=== PATIENT | female | born 1935 | race Caucasian/White ===

== ENCOUNTER 2017-07-12 05:07 | Inpatient (IN) | payer OTHER ==
[2017-07-12 06:18] LABS: ADD MAN DIFF? NO
[2017-07-12 06:30] LABS: WHITE BLOOD COUNT 15.1 10^3/ul (4.8-10.8)
[2017-07-12 06:30] LABS: BASOPHILS % 0.3 % (0.0-2.0); EOSINOPHILS # 0.2 10^3/ul (0.0-0.5); EOSINOPHILS % 1.5 % (0.0-7.0); HEMATOCRIT 39.9 % (37.0-47.0); HEMOGLOBIN 12.9 g/dl (12.0-16.0); LYMPHOCYTES # 1.9 10^3/ul (0.8-2.9); LYMPHOCYTES % 12.3 % (15.0-51.0); MEAN CORPUSCULAR HEMOGLOBIN 28.2 pg (29.0-33.0); MEAN CORPUSCULAR HGB CONC 32.3 g/dl (32.0-37.0); MEAN CORPUSCULAR VOLUME 87.1 fl (82.0-101.0); MEAN PLATELET VOLUME 10.8 fl (7.4-10.4); MONOCYTE # 0.9 10^3/ul (0.3-0.9); MONOCYTES % 5.9 % (0.0-11.0); NEUTROPHILS % 79.6 % (39.0-77.0); PLATELET COUNT 255 10^3/UL (140-415); RED BLOOD COUNT 4.58 10^6/ul (4.20-5.40); RED CELL DISTRIBUTION WIDTH 14.9 % (11.5-14.5)
[2017-07-12] MEDS: NITROGLYCERIN (SL) 0.4 MG TAB SL (06:45)
[2017-07-12] MEDS: ASPIRIN 81 MG TAB PO (06:45)
[2017-07-12] MEDS: NITROGLYCERIN 2% 1 GM OINT PKT TD (06:45)
[2017-07-12 06:50] LABS: INR 1.05; PARTIAL THROMBOPLASTIN TIME 34.8 Sec (25.0-35.0); PROTIME 13.8 Sec (11.9-14.9); PT RATIO 1.1
[2017-07-12 06:51] LABS: ALANINE AMINOTRANSFERASE 26 IU/L (13-69); ALBUMIN 4.1 g/dl (3.3-4.9); ALBUMIN/GLOBULIN RATIO 0.95; ALKALINE PHOSPHATASE 117 IU/L (42-121); ANION GAP 14 (8-16); ASPARTATE AMINO TRANSFERASE 28 IU/L (15-46); BILIRUBIN,INDIRECT 0.4 mg/dl (0-1.1); BILIRUBIN,TOTAL 0.4 mg/dl (0.2-1.3); BLOOD UREA NITROGEN 25 mg/dl (7-20); CALCIUM 9.5 mg/dl (8.4-10.2); CARBON DIOXIDE 27 mmol/L (21-31); CHLORIDE 105 mmol/L (97-110); CREATININE 0.68 mg/dl (0.44-1.00); GLUCOSE 108 mg/dl (70-220); SODIUM 142 mmol/L (135-144); TOTAL PROTEIN 8.4 g/dl (6.1-8.1)
[2017-07-12 07:02] LABS: B-TYPE NATRIURETIC PEPTIDE 2760 PG/ML (0-450); TROPONIN-I < 0.012 ng/ml (0.00-0.12)
[2017-07-12] MEDS ORDERED: ACETAMINOPHEN 325 MG TAB PO (10:00)
[2017-07-12] MEDS ORDERED: ONDANSETRON 4 MG INJ IV ×2 (10:00→11:00)
[2017-07-12] MEDS: FUROSEMIDE 40 MG INJ IV ×2 (11:13→17:08)
[2017-07-12] MEDS: METOPROLOL 50 MG TAB PO ×2 (11:13→20:39)
[2017-07-12] MEDS: LOSARTAN 25 MG TAB PO (11:13)
[2017-07-12] MEDS: CEFTRIAXONE 1 GM/50 ML (PMX) 50 ML IVPB (14:43)
[2017-07-12] MEDS: LACTOBACILLUS RHAMNOSUS CAP PO ×2 (14:43→20:38)
[2017-07-12] MEDS: morphine 2 MG INJ IV ×2 (14:44→20:36)
[2017-07-12] MEDS: AZITHROMYCIN 500MG/NS (PMX) 250 ML IVPB (15:52)
[2017-07-12 16:10] LABS: ADD UMIC YES; UR ASCORBIC ACID NEGATIVE (NEGATIVE); UR BACTERIA FEW /HPF (NONE SEEN); UR BILIRUBIN (Dip) NEGATIVE (NEGATIVE); UR BLOOD (Dip) 1+ mg/dL (NEGATIVE); UR CLARITY CLOUDY (CLEAR); UR COLOR YELLOW (YELLOW); UR GLUCOSE (Dip) NEGATIVE (NEGATIVE); UR KETONES (Dip) NEGATIVE (NEGATIVE); UR LEUKOCYTE ESTERASE (Dip) 3+ Leu/ul (NEGATIVE); UR NITRITE (Dip) NEGATIVE (NEGATIVE); UR RBC 14 /HPF (0-5); UR SPECIFIC GRAVITY (Dip) 1.006 (1.003-1.030); UR SQUAMOUS EPITHELIAL CELL MODERATE /HPF (FEW); UR TOTAL PROTEIN (Dip) NEGATIVE (NEGATIVE); UR UROBILINOGEN (Dip) NEGATIVE (NEGATIVE); UR WBC 67 /HPF (0-5)
[2017-07-12 16:26] LABS: CREATINE KINASE 31 IU/L (23-200)
[2017-07-12 16:39] LABS: CK INDEX 3.5
[2017-07-12 16:40] LABS: TROPONIN-I < 0.012 ng/ml (0.00-0.12)
[2017-07-12 18:04] LABS: D-DIMER 4419.21 ng/ml (<460)
[2017-07-12] MEDS: FAMOTIDINE 20 MG TAB PO (20:38)
[2017-07-12] MEDS: DOCUSATE SODIUM 100 MG CAP PO (20:38)
[2017-07-12] MEDS: APIXABAN 5 MG TABLET PO (20:38)
[2017-07-12] MEDS: LATANOPROST 0.005% 2.5 ML OPH BOTH EYES (21:00)
[2017-07-12] MEDS ORDERED: APIXABAN 5 MG TABLET PO (21:00)
[2017-07-12] MEDS ORDERED: TRAVOPROST 0.004% 2.5 ML OPH BOTH EYES (21:00)
[2017-07-13] MEDS: morphine 2 MG INJ IV (03:10)
[2017-07-13] MEDS: FUROSEMIDE 40 MG INJ IV ×2 (05:14→17:51)
[2017-07-13] MEDS: LACTOBACILLUS RHAMNOSUS CAP PO ×2 (08:45→20:22)
[2017-07-13] MEDS: APIXABAN 5 MG TABLET PO ×2 (08:46→20:03)
[2017-07-13] MEDS: LOSARTAN 25 MG TAB PO (08:47)
[2017-07-13] MEDS: METOPROLOL 50 MG TAB PO ×2 (08:47→20:18)
[2017-07-13] MEDS: CHOLECALCIFEROL 2,000 UNIT CAP PO (08:48)
[2017-07-13] MEDS: DOCUSATE SODIUM 100 MG CAP PO ×2 (08:48→20:03)
[2017-07-13] MEDS ORDERED: ASPIRIN 81 MG TAB PO (09:00)
[2017-07-13 09:04] LABS: ADD MAN DIFF? NO
[2017-07-13 09:12] LABS: WHITE BLOOD COUNT 13.7 10^3/ul (4.8-10.8)
[2017-07-13 09:12] LABS: BASOPHILS % 0.2 % (0.0-2.0); EOSINOPHILS # 0.1 10^3/ul (0.0-0.5); EOSINOPHILS % 0.4 % (0.0-7.0); HEMATOCRIT 39.3 % (37.0-47.0); HEMOGLOBIN 12.9 g/dl (12.0-16.0); LYMPHOCYTES # 1.3 10^3/ul (0.8-2.9); LYMPHOCYTES % 9.4 % (15.0-51.0); MEAN CORPUSCULAR HEMOGLOBIN 27.9 pg (29.0-33.0); MEAN CORPUSCULAR HGB CONC 32.8 g/dl (32.0-37.0); MEAN CORPUSCULAR VOLUME 85.1 fl (82.0-101.0); MEAN PLATELET VOLUME 10.7 fl (7.4-10.4); MONOCYTES % 7.6 % (0.0-11.0); NEUTROPHIL # 11.2 10^3/ul (1.6-7.5); PLATELET COUNT 273 10^3/UL (140-415); RED BLOOD COUNT 4.62 10^6/ul (4.20-5.40); RED CELL DISTRIBUTION WIDTH 14.6 % (11.5-14.5)
[2017-07-13 09:27] LABS: HEMOGLOBIN A1C 5.5 % (0-5.9)
[2017-07-13 09:34] LABS: INR 1.31; PROTIME 16.5 Sec (11.9-14.9); PT RATIO 1.3
[2017-07-13 09:35] LABS: ANION GAP 13 (8-16); BLOOD UREA NITROGEN 18 mg/dl (7-20); CALCIUM 9.6 mg/dl (8.4-10.2); CARBON DIOXIDE 32 mmol/L (21-31); CHLORIDE 97 mmol/L (97-110); CHOL/HDL RATIO 3.3 RATIO; CHOLESTEROL 164 mg/dl (100-200); GLUCOSE 127 mg/dl (70-220); HDL CHOLESTEROL 49 mg/dl (33-92); LDL CHOLESTEROL,CALCULATED 102 mg/dl; PARTIAL THROMBOPLASTIN TIME 44.3 Sec (25.0-35.0); POTASSIUM 3.3 mmol/L (3.5-5.1); SODIUM 139 mmol/L (135-144); TRIGLYCERIDES 65 mg/dl (0-149)
[2017-07-13 09:37] LABS: IRON 26 ug/dl (35-150)
[2017-07-13 09:47] LABS: % IRON SATURATION 9 % SAT (22-52); TOTAL IRON BINDING CAPACITY 305 ug/dl (241-421)
[2017-07-13] MEDS: POTASSIUM CHLORIDE (SR) 20 MEQ TAB PO ×2 (11:08→16:08)
[2017-07-13] MEDS: CEFTRIAXONE 1 GM/50 ML (PMX) 50 ML IVPB (14:18)
[2017-07-13] MEDS: traMADol 50 MG TAB PO ×2 (14:18→20:17)
[2017-07-13] MEDS: AZITHROMYCIN 500MG/NS (PMX) 250 ML IVPB (15:10)
[2017-07-13] MEDS ORDERED: morphine LIQ (10 MG/5 ML) CUP PO (16:00)
[2017-07-13] MEDS: predniSONE 20 MG TAB PO ×2 (17:51→23:33)
[2017-07-13] MEDS: FAMOTIDINE 20 MG TAB PO (20:03)
[2017-07-13] MEDS: TRAVOPROST 0.004% 2.5 ML OPH BOTH EYES (20:04)
[2017-07-13] MEDS ORDERED: DIPHENHYDRAMINE 50 MG INJ (21:15)
[2017-07-13] MEDS ORDERED: FAMOTIDINE 20 MG INJ (21:15)
[2017-07-13] MEDS: DIPHENHYDRAMINE 50 MG INJ IV (21:21)
[2017-07-13] MEDS: FAMOTIDINE 20 MG INJ IV (21:21)
[2017-07-13] MEDS: SOD CHLORIDE 0.9% 100 ML (21:28)
[2017-07-13] MEDS: IOHEXOL 100 ML (21:28)
[2017-07-14] MEDS ORDERED: LORAZEPAM 2 MG INJ (05:48)
[2017-07-14] MEDS: predniSONE 20 MG TAB PO (06:00)
[2017-07-14] MEDS: LORAZEPAM 2 MG INJ IV (06:00)
[2017-07-14] MEDS: FUROSEMIDE 40 MG INJ IV (06:00)
[2017-07-14] MEDS: CHOLECALCIFEROL 2,000 UNIT CAP PO (08:49)
[2017-07-14] MEDS: LACTOBACILLUS RHAMNOSUS CAP PO (08:49)
[2017-07-14] MEDS: LOSARTAN 25 MG TAB PO (08:50)
[2017-07-14] MEDS: METOPROLOL 50 MG TAB PO (08:50)
[2017-07-14] MEDS: DOCUSATE SODIUM 100 MG CAP PO (08:50)
[2017-07-14] MEDS: APIXABAN 5 MG TABLET PO (08:50)
[2017-07-14 12:04] LABS: ADD MAN DIFF? NO
[2017-07-14 12:09] LABS: BASOPHILS % 0.1 % (0.0-2.0); HEMATOCRIT 39.1 % (37.0-47.0); HEMOGLOBIN 12.7 g/dl (12.0-16.0); LYMPHOCYTES # 1.2 10^3/ul (0.8-2.9); MEAN CORPUSCULAR HGB CONC 32.5 g/dl (32.0-37.0); MEAN CORPUSCULAR VOLUME 86.1 fl (82.0-101.0); MEAN PLATELET VOLUME 10.9 fl (7.4-10.4); MONOCYTE # 0.4 10^3/ul (0.3-0.9); MONOCYTES % 3.7 % (0.0-11.0); NEUTROPHIL # 7.8 10^3/ul (1.6-7.5); NEUTROPHILS % 82.8 % (39.0-77.0); PLATELET COUNT 304 10^3/UL (140-415); RED BLOOD COUNT 4.54 10^6/ul (4.20-5.40); RED CELL DISTRIBUTION WIDTH 14.6 % (11.5-14.5)
[2017-07-14 12:09] LABS: WHITE BLOOD COUNT 9.5 10^3/ul (4.8-10.8)
[2017-07-14 12:33] LABS: ANION GAP 15 (8-16); BLOOD UREA NITROGEN 25 mg/dl (7-20); CALCIUM 9.8 mg/dl (8.4-10.2); CARBON DIOXIDE 29 mmol/L (21-31); CHLORIDE 96 mmol/L (97-110); CREATININE 0.85 mg/dl (0.44-1.00); GLUCOSE 138 mg/dl (70-220); SODIUM 136 mmol/L (135-144)
[2017-07-14] MEDS ORDERED: FUROSEMIDE 40 MG TAB PO (18:00)
== END 2017-07-14 12:45 | disposition home or self-care (01) | DRG 291 ==
LOC: E/R 05:07 → MS4 09:48
DX: I11.0 Hypertensive heart disease with heart failure (principal); J96.21 Acute and chronic respiratory failure with hypoxia; J84.10 Pulmonary fibrosis, unspecified; N39.0 Urinary tract infection, site not specified; R07.9 Chest pain, unspecified; I50.33 Acute on chronic diastolic (congestive) heart failure; I48.0 Paroxysmal atrial fibrillation; I48.2 Chronic atrial fibrillation; M06.9 Rheumatoid arthritis, unspecified; I16.0 Hypertensive urgency; E87.6 Hypokalemia; I70.0 Atherosclerosis of aorta; Z79.02 Long term (current) use of antithrombotics/antiplatelets; Z79.82 Long term (current) use of aspirin; Z87.891 Personal history of nicotine dependence; Z91.14 Patient's other noncompliance with medication regimen
CPT/HCPCS: 36415; 71045; 71275; 78582; 80048; 80053; 80061; 81001; 82550; 82553; 83036; 83540; 83735; 83880; 84100; 84443; 84484; 85025; 85378; 85610; 85730; 87040; 93005; 93306; 93970; 96374; 99285-25